=== PATIENT | male | born 1975 | race Caucasian/White ===

== ENCOUNTER 2024-04-14 04:36 | Day surgery (SDC) | payer OTHER ==
[2024-04-12 13:05] VITALS: BMI 27.1
[2024-04-14 08:33] VITALS: TEMP 97.5
[2024-04-14 08:56] VITALS: BP 128/78; PULSE 60; RESP 18
== END 2024-04-14 09:28 | disposition home or self-care (01) ==
LOC: JASU-ENDO 04:36
PROVIDERS: ATTEND Internal Medicine Gastroenterology
PROC: 0DB78ZX Excision of Stomach, Pylorus, Via Natural or Artificial Opening Endoscopic, Diagnostic (ICD-10-PCS; 2024-04-14)
PROC: 0DB68ZX Excision of Stomach, Via Natural or Artificial Opening Endoscopic, Diagnostic (ICD-10-PCS; 2024-04-14)
PROC: 0DB98ZX Excision of Duodenum, Via Natural or Artificial Opening Endoscopic, Diagnostic (ICD-10-PCS; principal; 2024-04-14 08:00)
DX: K25.9 Gastric ulcer, unspecified as acute or chronic, without hemorrhage or perforation (principal); K29.50 Unspecified chronic gastritis without bleeding; K29.80 Duodenitis without bleeding
CPT/HCPCS: 88305-TC; 88342-TC

== ENCOUNTER 2024-04-26 04:27 | Day surgery (SDC) | payer OTHER ==
[2024-04-18 14:34] VITALS: BMI 27.4
[2024-04-26 13:56] VITALS: TEMP 97
[2024-04-26 14:07] VITALS: BP 115/76; PULSE 52; RESP 14
== END 2024-04-26 12:15 | disposition home or self-care (01) ==
LOC: JASU-ENDO 04:27
PROVIDERS: ATTEND Internal Medicine Gastroenterology
PROC: 0DJD8ZZ Inspection of Lower Intestinal Tract, Via Natural or Artificial Opening Endoscopic (ICD-10-PCS; principal; 2024-04-26 11:00)
DX: Z12.11 Encounter for screening for malignant neoplasm of colon (principal); K57.30 Diverticulosis of large intestine without perforation or abscess without bleeding; K64.8 Other hemorrhoids

== ENCOUNTER 2024-06-20 21:26 | Emergency (ER) | payer OTHER ==
[2024-06-20 21:40] VITALS: BP 169/86; PULSE 67; RESP 18; TEMP 98.3; BMI 26.5
[2024-06-20] MEDS ORDERED: FAMOTIDINE 20 MG/50 ML IVPB 20 MG/50 ML MG IVPB ONE (23:04)
[2024-06-20] MEDS ORDERED: ACETAMINOPHEN INJECTION 100 ML ONE (23:04)
[2024-06-20] MEDS ORDERED: MAG HYDROX/AL HYDROX/SIMETH 30 ML UNIT-DOSE CUP ONE (23:04)
[2024-06-20] MEDS: FAMOTIDINE 20 MG/50 ML IVPB 20 MG/50 ML MG IVPB ONE (23:39)
[2024-06-20] MEDS: MAG HYDROX/AL HYDROX/SIMETH 30 ML UNIT-DOSE CUP PO ONE (23:39)
[2024-06-20] MEDS: ACETAMINOPHEN 1000 MG/100 ML BAG IVPB ONE (23:39)
[2024-06-20 23:51] LABS: BASO % 0.4 % (0-2.0); EOS % 2.4 % (0-4.5); HEMATOCRIT 41.9 % (35.4-49); HEMOGLOBIN 14.3 GM/dL (11.7-16.9); LYMPH % 20.3 % (8-40); MCH 31.9 pg (25.7-33.7); MCHC 34.1 g/dl (32.0-35.9); MEAN CELL VOLUME 93.7 fl (80-96); MEAN PLT VOLUME 7.2 fl (7.5-11.1); MONO % 8.6 % (3.8-10.2); NEUT % 68.3 % (42.8-82.8); PLATELET COUNT 315 10^3/uL (134-434); RBC 4.48 M/mm3 (4.00-5.60); RDW 15.5 % (11.9-15.9); WHITE BLOOD COUNT 8.3 K/mm3 (4.0-10.0)
[2024-06-21 00:03] LABS: INR 1.05 (0.83-1.09); PROTHROMBIN TIME (PATIENT) 11.8 SEC (9.7-13.0)
[2024-06-21 00:05] LABS: ACTIVATED PTT 29.8 SECONDS (25.2-36.5)
[2024-06-21 00:10] LABS: CHLORIDE 106 mmol/L (98-107); SODIUM 134 mmol/L (136-145)
[2024-06-21 00:12] LABS: CALCIUM 8.7 mg/dL (8.5-10.1)
[2024-06-21 00:13] LABS: ALBUMIN 3.7 g/dl (3.4-5.0); ANION GAP 5 mmol/L (4-13); BLOOD UREA NITROGEN 8.7 mg/dL (7-18); CO2 23 mmol/L (21-32); GLUCOSE,RANDOM 102 mg/dL (74-106); POTASSIUM 7.4 mmol/L (3.5-5.1)
[2024-06-21 00:16] LABS: CREATININE 0.7 mg/dL (0.55-1.3); SGOT/AST 83 U/L (15-37)
[2024-06-21 00:17] LABS: BILIRUBIN,TOTAL 0.4 mg/dL (0.2-1); TOT PROT 8.1 g/dl (6.4-8.2)
[2024-06-21 00:18] LABS: SGPT/ALT 23 U/L (13-61)
[2024-06-21 00:19] LABS: ALK PHOS 115 U/L (45-117)
[2024-06-21 00:58] LABS: POTASSIUM 3.7 mmol/L (3.5-5.1)
[2024-06-21 00:59] LABS: CALCIUM 8.5 mg/dL (8.5-10.1)
[2024-06-21 01:00] LABS: BLOOD UREA NITROGEN 7.9 mg/dL (7-18)
[2024-06-21 01:03] LABS: CREATININE 0.6 mg/dL (0.55-1.3)
== END 2024-06-21 01:45 | disposition home or self-care (01) ==
LOC: JER 21:26
PROC: 3E033GC Introduction of Other Therapeutic Substance into Peripheral Vein, Percutaneous Approach (ICD-10-PCS; principal; 2024-06-20)
PROC: 3E033NZ Introduction of Analgesics, Hypnotics, Sedatives into Peripheral Vein, Percutaneous Approach (ICD-10-PCS; 2024-06-20)
DX: R10.13 Epigastric pain (principal)
CPT/HCPCS: 36415; 71046-TC-FY; 80048; 80053; 83690; 84484; 85025; 85610; 85730; 86850; 86900; 86901; 93005; 93010; 96365; 96375; 99285-25; J0131